=== PATIENT | male | born 1990 | race Caucasian/White ===

== ENCOUNTER → 2017-04-26 17:11 | Outpatient (CLI) | payer OTHER, SELFPAY ==
[2017-04-26 19:08] LABS: Amphetamine Urine VISTA NEGATIVE (<1000 ng/mL); Barbiturate Urine VISTA NEGATIVE (< 200 ng/mL); Benzodiazepine Urine VISTA NEGATIVE (< 200 ng/mL); Cocaine Urine VISTA NEGATIVE (< 300 ng/mL); Ecstacy Urine VISTA NEGATIVE (< 500 ng/mL); Methadone Urine VISTA NEGATIVE (< 300 ng/mL); PCP Urine VISTA NEGATIVE (< 25 ng/mL); THC Urine VISTA NEGATIVE (< 50 ng/mL); Vista UDS pH Range 7
== END ==
PROVIDERS: Visit Provider Anesthesiology Pain Medicine
DX: M51.27 Other intervertebral disc displacement, lumbosacral region (principal)
CPT/HCPCS: 80307

== ENCOUNTER 2018-12-23 10:00 | Outpatient (RCR) | payer OTHER, SELFPAY ==
--- NOTE | 2018-11-17 18:17 | HP.PTEVAL ---
Patient's Visit Information TAWNY BULLOCK is a 28 year old M referred to Physical Therapy by Eric Duron MD with a diagnosis of Intervertebral disc displacement.. Date of Evaluation: 11/17/18 Physical Therapist: Leif Conley, FELIX, OCS, CSCS - Visit Plan Frequency: 3x /Week Duration: 4-6 Weeks Plan: 3x/week for 6 weeks for... 1. roll gluts and HS and stretch. 2. STM paraspinals L as needed. 3. emphasize core strength(core and hip abd and extension), HS/gastroc stretch and low back ROM and appropriate positioning and body mechanics. - Subjective Findings: Spine got crushed at work 3 yrs ago in a machine. Shattered 2 vertebrae. Had 5 screws adn 2 rods adn laminectomy. Had some chronic pain. Removed hardware last year as it was causing pain as bones had healed. Still has HNP and ruptured discs. Daily pain to 6-8/10. Constant and fluctuating. Worse with driving >30 minutes, Bending will make hime worse if done constantly and lifting. Could only do 6 hours. Had injections done 10/25 [facility] helped for 3-4 days and then pain came back. Then had to leave work early. This is not necessarily worse than his baseline pain described as 8-9/[address] Sandhu has given tramadol as injection approval takes a while. Sleep is OK most nights.Nerve pain acts up at times in both legs into ankle and more posterior and has been there for 3 years. On Gabapentin. [facility] and on feet all day and needs to squat down. Can't take break as much as he needs to. Started 10/26 and hadn't worked for previous 3 years since accident. Had done 13 weeks of vocational training. No back exercises. Enjoys spending time with kids 5,1 and another due. Limited in interaction moreso with 5 yo as he struggles to pick him up at all as he weighs 40# and this is challenging. Dress self and basic ADLs are not too bad. crossing legs to put shoe on can put legs to sleep and standing still as in doing dishes can aggravate back. - Pain LBP Pain Intensity (Out of 10): 6 Pain Intensity Range: 4, 8 - Objective R t/s scoliosis in spine. Incision healed well with only slight palpable scar tissue. L paraspinals in lower t/s and lumbar spine have nodule(knot?) palpable. Tenderness is present in that knot as well as in the upper gluts B. Tends to sacral sit in chair. L/S aROM ext mod limited and slight pain, flexion L/S max limited and tight. B SB Min limited adn without pain as is rotation. 0/3 reflexes B patella and achilles. Sensation LE WNL to gross light touch, able to cross legs without tingling today. Strength LE 4+/5 knee flexiona dn ext, 3+ in hip ext, 4- abd. 5/5 ankles. Flexibility is severely limited in HS and ITB and piriformis B. gastroc min limited. Walks well with excessive lordosis in l/S and stiff. Trasnfers I withotu evidence of pain and stairs reciprocal without rail. - Goals Goal 1:: Pt I in appropriate HEP to minimize future problems. Goal Time Frame: 4-6 Weeks Goal 2:: Patient tolerate day at work without increasing pain >2/10 and 50% better overall. Goal Time Frame: 4-6 Weeks Goal 3:: Stand at sink and do dishes without pain for 15 minutes. Goal Time Frame: 4-6 Weeks Goal 4:: Lift 6 yo without pain consistently at home Goal Time Frame: 4-6 Weeks Goal 5:: <25% oswestry disability - Rehabilitation Potential Physical Therapy Diagnosis: Degenerative changes in Lb and post traumatic stiffness adn disc degeneration. Rehabilitation Potential: Questionable - Anticipated Interventions Patient/Client Instruction: Educate patient on: Condition, Plan of Care For the Purpose of:: To decrease pain, To increase ROM, To improve muscle performance and motor function, To increase tolerance to activity/condition/position Therapeutic Exercise to Include: Strength training, Postural training, Flexibilty training, Passive ROM, Active ROM For the Purpose of:: To decrease pain, To improve muscle performance and motor function, To increase tolerance to activity/condition/position, To improve performance and independence with ADL's, To improve ability of physical actions for home/community/work/leisure Manual Therapy Techniques to Include: Soft tissue mobilization For the Purpose of:: To decrease pain, To increase ROM Cryotherapy (ice pack, ice massage): Yes For the Purpose of:: To decrease pain, To decrease swelling/inflammation Thank you for the opportunity to evaluate your patient. For Medicare and Medicare O plans, please review the plan of care and approve it. It will need to be FAXED BACK to us at [phone] for Medicare purposes. For Medicare only, by signing this I certify the plan of care. Please let me know if there are questions or concerns regarding this plan of care. Physician Signature: Date:
--- NOTE | 2018-12-23 10:47 | HP.PTDCSUM ---
HP - PT D/C Summary It has been my pleasure to treat TAWNY BULLOCK under orders from Eric Duron MD, for the diagnosis of Intervertebral disc displacement. for a total of 15 visit(s). Discharge Date: 12/23/18 Please see the following information for a summary of their discharge status. - Subjective Subjective: bETTER. 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 Driving pain is still present but at about an hour and is 4/10 vs previous 11/01. Can get out of car and it goes away. Has not tried standing to do dishes due to busy work schdule. Exercising at home regularly. Stretching adn ROM and strength LB and focussing on posture. To doctor in two weeks. Feels like he can continue ex at home adn manage pain. - Pain LBP Pain Intensity (Out of 10): 0 BLAT LEs Pain Intensity (Out of 10): 0 - Overall Improvement % Improvement: 50 - Objective Objective/Function: Good ROM in spine with only min limitations in ext. Upper leg muscles still very tight adn limiting but not painful, will cotninue to work on this with stretches at home. Walks with some stiffness in spine but no pain and steps are nromal. OVERALL BETTER PROGRESS THAN EXPECTED AND IT HELPS THAT HE CHANGED JOBS. CAN CONTINUE VIA HEP - Goals Goal 1:: Pt I in appropriate HEP to minimize future problems. Goal Progress: Goal Met Goal 2:: Patient tolerate day at work without increasing pain >2/10 and 50% better overall. Goal Progress: Progressing Goal 3:: Stand at sink and do dishes without pain for 15 minutes. Goal Progress: Not attempted Goal 4:: Lift 6 yo without pain consistently at home Goal Progress: Goal Met Goal 5:: <25% oswestry disability - Plan Plan: D/C - D/C Information Discharge Comments: Doing well and will cotninue via HEP adn f/u with Dr. Duron in a couple weeks. If there are questions or concerns regarding this patient's physical therapy, please feel free to call me at [phone]. Thank you for the referral of this patient. Sincerely, Leif Conley, DPT, OCS, CSCS
== END 2018-12-23 19:00 | disposition home or self-care (01) ==
LOC: PT 10:00
PROVIDERS: Referring Provider Anesthesiology Pain Medicine; Visit Provider Anesthesiology Pain Medicine
DX: M51.26 Other intervertebral disc displacement, lumbar region (principal); M51.27 Other intervertebral disc displacement, lumbosacral region
CPT/HCPCS: 97110; 97140; 97162; 97530